=== PATIENT | female | born 1990 | race African-American/Black ===

== ENCOUNTER 2017-12-21 06:32 | Emergency (ER) | payer OTHER ==
[~2017-12-21] VITALS: Ht 162.6 cm; Wt 49.0 kg
[~2017-12-21 06:32] MED LIST: PROMS25 WY RECTAL; PROZAC10 MG PO; REGLAN 10 MG TA10 MG PO; ZOFRAN ODT4 MG PO
[2017-12-21 07:19] LABS: ABSOLUTE NEUTROPHILS 8.2 thou/uL (1.4-8.2); BASOPHILS 0.1 % (0.0-2.0); EOSINOPHILS 0.1 % (0.0-3.0); HEMATOCRIT 33.3 % (37.0-47.0); LYMPHOCYTES 9.2 % (24.0-44.0); MCH 26.5 pg (26.0-34.0); MCV 80.2 fL (80.0-100.0); MONOCYTES 3.6 % (1.0-8.0); PLATELET COUNT 215 thou/uL (150-400); RBC 4.15 mil/uL (4.20-5.00); RDW 16.4 % (10.5-14.5); WBC 9.4 thou/uL (4.0-11.0)
[2017-12-21 08:07] LABS: URINE BILIRUBIN NEGATIVE (Negative); URINE BLOOD NEGATIVE (Negative); URINE CLARITY CLEAR; URINE COLOR YELLOW; URINE GLUCOSE-RANDOM* NEGATIVE (Negative); URINE KETONES 3+ (Negative); URINE LEUKOCYTES-REFLEX NEGATIVE (Negative); URINE NITRITE-REFLEX NEGATIVE (Negative); URINE PROTEIN (DIPSTICK) NEGATIVE (Negative); URINE SPECIFIC GRAVITY 1.025 (1.005-1.035); URINE UROBILINOGEN 0.2 E.U./dl (0.2-1.0)
[2017-12-21 08:11] LABS: URINE REDUCING SUBSTANCE NEGATIVE
[2017-12-21 08:30] LABS: ALBUMIN 3.3 g/dL (3.4-5.0); CALCIUM 8.8 mg/dL (8.5-10.1); CREATININE 0.6 mg/dL (0.6-1.0); POTASSIUM 3.9 mmol/L (3.5-5.1); TOTAL BILIRUBIN 0.6 mg/dL (<0.1-1.0); TOTAL PROTEIN 6.7 g/dL (6.4-8.2)
[2017-12-21] MEDS ORDERED: PROMS25 WY RECTAL (08:45)
[2017-12-21] MEDS ORDERED: ZOFRAN ODT8 MG PO (08:45)
[2018-02-14] MEDS ORDERED: PHENERGAN 25 MG25 M1 PO (14:42)
[2018-02-14] MEDS ORDERED: PROMS25 WY RECTAL (14:42)
== END 2017-12-21 08:50 | disposition home or self-care (01) ==
LOC: ER 06:32
PROVIDERS: Emergency Medicine
DX: O21.0 Mild hyperemesis gravidarum (principal); Z3A.18 18 weeks gestation of pregnancy

== ENCOUNTER 2017-12-27 04:25 | Emergency (ER) | payer OTHER ==
[~2017-12-27] VITALS: Ht 162.6 cm; Wt 49.9 kg
[~2017-12-27 04:25] MED LIST changes: +ZOFRAN ODT8 MG PO
[2017-12-27] MEDS ORDERED: NOHOMEMEDICATIONS (04:53)
[2017-12-27] MEDS ORDERED: ZOFRAN ODT8 MG PO (04:58)
[2017-12-27] MEDS ORDERED: PEPCID20 MG PO (04:58)
[2017-12-27] MEDS ORDERED: PROMS25 WY RECTAL (04:58)
[2018-02-14] MEDS ORDERED: PROMS25 WY RECTAL (14:42)
[2018-02-14] MEDS ORDERED: PHENERGAN 25 MG25 M1 PO (14:42)
== END 2017-12-27 07:20 | disposition home or self-care (01) ==
LOC: ER 04:25
DX: I10 Essential (primary) hypertension (principal)

== ENCOUNTER 2018-01-07 05:32 | Emergency (ER) | payer OTHER ==
[~2018-01-07] VITALS: Ht 162.6 cm; Wt 49.0 kg
[~2018-01-07 05:32] MED LIST changes: +NOHOMEMEDICATIONS; +PEPCID20 MG PO
[2018-01-07 06:08] LABS: ABSOLUTE NEUTROPHILS 8.4 thou/uL (1.4-8.2); BASOPHILS 0.3 % (0.0-2.0); EOSINOPHILS 0.6 % (0.0-3.0); HEMATOCRIT 31.2 % (37.0-47.0); HEMOGLOBIN 10.3 gm/dL (12.0-15.0); LYMPHOCYTES 12.8 % (24.0-44.0); MCH 26.5 pg (26.0-34.0); MCHC 32.9 g/dL (28.0-37.0); MCV 80.5 fL (80.0-100.0); PLATELET COUNT 218 thou/uL (150-400); POLYS 80.3 % (36.0-66.0); RBC 3.88 mil/uL (4.20-5.00); RDW 16.2 % (10.5-14.5); WBC 10.4 thou/uL (4.0-11.0)
[2018-01-07 06:26] LABS: CALCIUM 8.5 mg/dL (8.5-10.1); CREATININE 0.6 mg/dL (0.6-1.0); POTASSIUM 3.1 mmol/L (3.5-5.1)
[2018-01-07 06:32] LABS: ALBUMIN 2.8 g/dL (3.4-5.0); TOTAL BILIRUBIN 0.3 mg/dL (<0.1-1.0); TOTAL PROTEIN 6.4 g/dL (6.4-8.2)
[2018-01-07 07:24] LABS: URINE BILIRUBIN NEGATIVE (Negative); URINE BLOOD NEGATIVE (Negative); URINE CLARITY SL CLOUDY; URINE COLOR YELLOW; URINE GLUCOSE-RANDOM* NEGATIVE (Negative); URINE KETONES NEGATIVE (Negative); URINE NITRITE-REFLEX NEGATIVE (Negative); URINE PROTEIN (DIPSTICK) NEGATIVE (Negative); URINE SPECIFIC GRAVITY 1.025 (1.005-1.035); URINE UROBILINOGEN 0.2 E.U./dl (0.2-1.0)
[2018-01-07 07:26] LABS: URINE LEUKOCYTES-REFLEX TRACE (Negative)
[2018-02-14] MEDS ORDERED: PROMS25 WY RECTAL (14:42)
[2018-02-14] MEDS ORDERED: PHENERGAN 25 MG25 M1 PO (14:42)
== END 2018-01-07 09:34 ==
LOC: ER 05:32
PROVIDERS: Emergency Medicine
DX: O21.0 Mild hyperemesis gravidarum (principal); Z3A.24 24 weeks gestation of pregnancy

== ENCOUNTER 2018-02-05 03:59 | Emergency (ER) | payer OTHER ==
[~2018-02-05] VITALS: Ht 162.6 cm; Wt 49.9 kg
[2018-02-05] MEDS ORDERED: PEPCID20 MG PO (04:33)
[2018-02-05 04:35] LABS: URINE BILIRUBIN NEGATIVE (Negative); URINE BLOOD 3+ (Negative); URINE CLARITY SL CLOUDY; URINE COLOR YELLOW; URINE GLUCOSE-RANDOM* NEGATIVE (Negative); URINE KETONES 3+ (Negative); URINE PROTEIN (DIPSTICK) 1+ (Negative); URINE SPECIFIC GRAVITY >= 1.030 (1.005-1.035); URINE UROBILINOGEN 0.2 E.U./dl (0.2-1.0)
[2018-02-05 04:41] LABS: CALCIUM 8.9 mg/dL (8.5-10.1); CREATININE 0.7 mg/dL (0.6-1.0); POTASSIUM 3.7 mmol/L (3.5-5.1)
[2018-02-05 04:57] LABS: URINE LEUKOCYTES-REFLEX TRACE (Negative); URINE NITRITE-REFLEX POSITIVE (Negative)
[2018-02-05 05:04] LABS: URINE REDUCING SUBSTANCE NEGATIVE
[2018-02-05 05:06] LABS: BACTERIA-REFLEX >30 Many /HPF (None Seen); CASTS None Seen /LPF (None Seen); MUCUS 4-6 Moderate strn/LPF (None Seen); SQUAMOUS 4-10 Moderate /LPF (0-3); URINE WBC-REFLEX 6-15 Few /HPF (0-5)
[2018-02-05 05:07] LABS: CRYSTALS None Seen /LPF (None Seen)
[2018-02-05] MEDS ORDERED: WAL-SOM25 M1 PO (05:37)
[2018-02-05] MEDS ORDERED: KEFLEX500 M1 PO (05:37)
[2018-02-05] MEDS ORDERED: VITAMIN B-625 MG PO (05:37)
[2018-02-05 06:15] VITALS: BP 96/56
== END 2018-02-05 06:32 | disposition home or self-care (01) ==
LOC: ER 03:59
PROVIDERS: Emergency Medicine
DX: O23.42 Unspecified infection of urinary tract in pregnancy, second trimester (principal); Z3A.27 27 weeks gestation of pregnancy

== ENCOUNTER 2018-03-10 08:20 | Emergency (ER) | payer OTHER ==
[~2018-03-10] VITALS: Ht 162.6 cm; Wt 56.7 kg
[~2018-03-10 08:20] MED LIST changes: +KEFLEX500 M1 PO; +PHENERGAN 25 MG25 M1 PO; +VITAMIN B-625 MG PO; +WAL-SOM25 M1 PO
[2018-03-10] MEDS ORDERED: BENADRYL25 MG PO (08:30)
[2018-03-10] MEDS ORDERED: IRON325 PO (08:30)
[2018-03-10] MEDS ORDERED: MACRODANTIN25 MG PO (08:34)
[2018-03-10 09:32] LABS: URINE BILIRUBIN NEGATIVE (Negative); URINE BLOOD 3+ (Negative); URINE CLARITY SL CLOUDY; URINE COLOR YELLOW; URINE GLUCOSE-RANDOM* NEGATIVE (Negative); URINE KETONES NEGATIVE (Negative); URINE NITRITE-REFLEX NEGATIVE (Negative); URINE PROTEIN (DIPSTICK) 1+ (Negative); URINE SPECIFIC GRAVITY 1.025 (1.005-1.035); URINE UROBILINOGEN 0.2 E.U./dl (0.2-1.0)
[2018-03-10 09:34] LABS: SQUAMOUS 0-3 Few /LPF (0-3); URINE LEUKOCYTES-REFLEX TRACE (Negative)
[2018-03-10 09:35] LABS: CASTS None Seen /LPF (None Seen); CRYSTALS None Seen /LPF (None Seen)
[2018-03-10 09:37] LABS: BACTERIA-REFLEX 1-9 Few /HPF (None Seen); URINE WBC-REFLEX None Seen /HPF (0-5)
[2018-03-10 10:35] LABS: HEMATOCRIT 30.4 % (37.0-47.0); HEMOGLOBIN 10.1 gm/dL (12.0-15.0); MCH 26.3 pg (26.0-34.0); MCHC 33.3 g/dL (28.0-37.0); RBC 3.85 mil/uL (4.20-5.00); WBC 11.8 thou/uL (4.0-11.0)
[2018-03-10 10:44] LABS: CALCIUM 8.7 mg/dL (8.5-10.1); CREATININE 0.7 mg/dL (0.6-1.0); POTASSIUM 3.8 mmol/L (3.5-5.1)
[2018-03-10 10:50] LABS: ALBUMIN 3.1 g/dL (3.4-5.0); TOTAL BILIRUBIN 0.4 mg/dL (<0.1-1.0); TOTAL PROTEIN 6.8 g/dL (6.4-8.2)
[2018-03-10 12:29] VITALS: BP 114/76
[2018-03-11 14:12] LABS: NEISSERIA GONORRHEA-PCR Negative (Negative)
== END 2018-03-10 12:25 | disposition left against medical advice (07) ==
LOC: ER 08:20
PROVIDERS: Emergency Medicine
DX: O23.03 Infections of kidney in pregnancy, third trimester (principal); Z3A.31 31 weeks gestation of pregnancy

== ENCOUNTER 2018-03-12 04:40 | Emergency (ER) | payer OTHER ==
[~2018-03-12] VITALS: Ht 162.6 cm; Wt 51.7 kg
[~2018-03-12 04:40] MED LIST changes: +BENADRYL25 MG PO; +IRON325 PO; +MACRODANTIN25 MG PO
[2018-03-12 04:53] LABS: URINE BILIRUBIN NEGATIVE (Negative); URINE BLOOD NEGATIVE (Negative); URINE CLARITY CLEAR; URINE COLOR YELLOW; URINE GLUCOSE-RANDOM* NEGATIVE (Negative); URINE KETONES NEGATIVE (Negative); URINE LEUKOCYTES TRACE (Negative); URINE NITRITE NEGATIVE (Negative); URINE SPECIFIC GRAVITY 1.015 (1.005-1.035); URINE UROBILINOGEN 0.2 E.U./dl (0.2-1.0)
[2018-03-12 05:10] LABS: SSA (PROTEIN CONFIRMATORY) NEGATIVE (Negative); URINE PROTEIN (DIPSTICK) NEGATIVE (Negative)
[2018-03-12 05:12] VITALS: BP 107/61
[2018-03-12 05:12] LABS: ABSOLUTE NEUTROPHILS 5.8 thou/uL (1.4-8.2); BASOPHILS 0.3 % (0.0-2.0); EOSINOPHILS 0.1 % (0.0-3.0); HEMATOCRIT 30.8 % (37.0-47.0); HEMOGLOBIN 10.2 gm/dL (12.0-15.0); LYMPHOCYTES 12.4 % (24.0-44.0); MCH 26.2 pg (26.0-34.0); MCHC 33.2 g/dL (28.0-37.0); MCV 78.8 fL (80.0-100.0); MONOCYTES 5.9 % (1.0-8.0); PLATELET COUNT 211 thou/uL (150-400); POLYS 81.3 % (36.0-66.0); RBC 3.91 mil/uL (4.20-5.00); RDW 18.5 % (10.5-14.5); WBC 7.2 thou/uL (4.0-11.0)
[2018-03-12] MEDS ORDERED: CYCLOBENZAPRINE5 MG PO (05:17)
[2018-03-12 05:19] LABS: CALCIUM 8.7 mg/dL (8.5-10.1); CREATININE 0.6 mg/dL (0.6-1.0); POTASSIUM 3.4 mmol/L (3.5-5.1)
[2018-03-12 05:25] LABS: ALBUMIN 2.9 g/dL (3.4-5.0); DIRECT BILIRUBIN 0.1 mg/dL (<0.1-0.3); TOTAL BILIRUBIN 0.5 mg/dL (<0.1-1.0); TOTAL PROTEIN 6.6 g/dL (6.4-8.2)
[2018-03-12] MEDS ORDERED: PROMS25 WY RECTAL (05:26)
== END 2018-03-12 05:40 | disposition home or self-care (01) ==
LOC: ER 04:40
PROVIDERS: Emergency Medicine
DX: O21.0 Mild hyperemesis gravidarum (principal); Z3A.31 31 weeks gestation of pregnancy

== ENCOUNTER 2018-03-20 08:52 | Emergency (ER) | payer OTHER ==
[~2018-03-20] VITALS: Ht 162.6 cm; Wt 51.7 kg
[~2018-03-20 08:52] MED LIST changes: +CYCLOBENZAPRINE5 MG PO
[2018-03-20 09:12] LABS: ICTOTEST (BILI CONFIRMATORY) Negative (Negative); URINE BILIRUBIN NEGATIVE (Negative); URINE BLOOD TRACE (Negative); URINE CLARITY SL CLOUDY; URINE COLOR YELLOW; URINE GLUCOSE-RANDOM* NEGATIVE (Negative); URINE KETONES TRACE (Negative); URINE LEUKOCYTES-REFLEX 2+ (Negative); URINE NITRITE-REFLEX NEGATIVE (Negative); URINE PROTEIN (DIPSTICK) 1+ (Negative); URINE SPECIFIC GRAVITY 1.025 (1.005-1.035); URINE UROBILINOGEN 0.2 E.U./dl (0.2-1.0)
[2018-03-20 09:18] LABS: CASTS None Seen /LPF (None Seen); CRYSTALS None Seen /LPF (None Seen); SQUAMOUS 4-10 Moderate /LPF (0-3)
[2018-03-20 09:19] LABS: URINE RBC 0-2 Rare /HPF (0-2); URINE WBC-REFLEX 6-15 Few /HPF (0-5)
[2018-03-20 09:41] LABS: ABSOLUTE NEUTROPHILS 7.1 thou/uL (1.4-8.2); BASOPHILS 0.3 % (0.0-2.0); EOSINOPHILS 0.2 % (0.0-3.0); HEMATOCRIT 33.1 % (37.0-47.0); HEMOGLOBIN 10.9 gm/dL (12.0-15.0); LYMPHOCYTES 12.8 % (24.0-44.0); MCH 25.7 pg (26.0-34.0); MCHC 32.8 g/dL (28.0-37.0); MCV 78.4 fL (80.0-100.0); MONOCYTES 5.5 % (1.0-8.0); PLATELET COUNT 258 thou/uL (150-400); POLYS 81.2 % (36.0-66.0); RBC 4.22 mil/uL (4.20-5.00); RDW 18.8 % (10.5-14.5); WBC 8.7 thou/uL (4.0-11.0)
[2018-03-20 09:49] LABS: CALCIUM 9.1 mg/dL (8.5-10.1); CREATININE 0.6 mg/dL (0.6-1.0)
[2018-03-20] MEDS ORDERED: PHENERGAN 25 MG25 M1 PO ×2 (09:49→11:16)
[2018-03-20 09:55] LABS: ALBUMIN 3.4 g/dL (3.4-5.0); TOTAL BILIRUBIN 0.8 mg/dL (<0.1-1.0); TOTAL PROTEIN 7.7 g/dL (6.4-8.2)
[2018-03-20] MEDS ORDERED: BACTRIM DS TAB1 EACH PO (11:16)
[2018-03-20] MEDS ORDERED: FLEXERIL PO (11:16)
[2018-03-20 11:54] VITALS: BP 109/69
[2018-03-21] MEDS ORDERED: ZOFRAN ODT4 MG PO (06:08)
== END 2018-03-20 11:57 | disposition home or self-care (01) ==
LOC: ER 08:52
PROVIDERS: Nurse Practitioner Family
DX: O21.0 Mild hyperemesis gravidarum (principal); O23.43 Unspecified infection of urinary tract in pregnancy, third trimester; M62.830 Muscle spasm of back; F32.9 Major depressive disorder, single episode, unspecified; Z88.5 Allergy status to narcotic agent; Z3A.33 33 weeks gestation of pregnancy

== ENCOUNTER 2018-03-21 03:28 | Emergency (ER) | payer OTHER ==
[~2018-03-21] VITALS: Ht 162.6 cm; Wt 51.7 kg
[~2018-03-21 03:28] MED LIST changes: +BACTRIM DS TAB1 EACH PO; +FLEXERIL PO
[2018-03-21 04:01] LABS: ABSOLUTE NEUTROPHILS 4.9 thou/uL (1.4-8.2); BASOPHILS 0.6 % (0.0-2.0); EOSINOPHILS 0.1 % (0.0-3.0); HEMATOCRIT 29.5 % (37.0-47.0); HEMOGLOBIN 9.6 gm/dL (12.0-15.0); LYMPHOCYTES 25.1 % (24.0-44.0); MCH 25.6 pg (26.0-34.0); MCHC 32.6 g/dL (28.0-37.0); MCV 78.5 fL (80.0-100.0); MONOCYTES 10.3 % (1.0-8.0); PLATELET COUNT 229 thou/uL (150-400); POLYS 63.9 % (36.0-66.0); RBC 3.76 mil/uL (4.20-5.00); RDW 18.9 % (10.5-14.5); WBC 7.7 thou/uL (4.0-11.0)
[2018-03-21 04:09] LABS: URINE BILIRUBIN NEGATIVE (Negative); URINE BLOOD NEGATIVE (Negative); URINE CLARITY CLEAR; URINE COLOR YELLOW; URINE GLUCOSE-RANDOM* NEGATIVE (Negative); URINE KETONES NEGATIVE (Negative); URINE LEUKOCYTES 1+ (Negative); URINE NITRITE POSITIVE (Negative); URINE PROTEIN (DIPSTICK) TRACE (Negative); URINE SPECIFIC GRAVITY 1.025 (1.005-1.035); URINE UROBILINOGEN 0.2 E.U./dl (0.2-1.0)
[2018-03-21 04:09] LABS: CALCIUM 8.6 mg/dL (8.5-10.1); CREATININE 0.6 mg/dL (0.6-1.0); POTASSIUM 3.5 mmol/L (3.5-5.1)
[2018-03-21 04:15] LABS: ALBUMIN 3.1 g/dL (3.4-5.0); DIRECT BILIRUBIN 0.1 mg/dL (<0.1-0.3); TOTAL BILIRUBIN 0.6 mg/dL (<0.1-1.0)
[2018-03-21 04:26] LABS: CASTS None Seen /LPF (None Seen); MUCUS 4-6 Moderate strn/LPF (None Seen); SQUAMOUS 4-10 Moderate /LPF (0-3)
[2018-03-21 04:27] LABS: BACTERIA >30 Many /HPF (None Seen); CRYSTALS None Seen /LPF (None Seen); URINE RBC 0-2 Rare /HPF (0-2); URINE WBC 6-15 Few /HPF (0-5)
[2018-03-21] MEDS ORDERED: ZOFRAN ODT4 MG PO (06:08)
[2018-03-21 06:13] VITALS: BP 123/78
[2018-03-22] MEDS ORDERED: KEFLEX500 M1 PO (03:14)
== END 2018-03-21 06:15 | disposition home or self-care (01) ==
LOC: ER 03:28
PROVIDERS: Emergency Medicine
DX: O21.0 Mild hyperemesis gravidarum (principal); O23.43 Unspecified infection of urinary tract in pregnancy, third trimester; O99.343 Other mental disorders complicating pregnancy, third trimester; Z3A.33 33 weeks gestation of pregnancy; Z88.5 Allergy status to narcotic agent

== ENCOUNTER 2018-03-22 02:24 | Emergency (ER) | payer OTHER ==
[~2018-03-22] VITALS: Ht 162.6 cm; Wt 52.2 kg
[2018-03-22 03:14] LABS: ABSOLUTE NEUTROPHILS 6.5 thou/uL (1.4-8.2); BASOPHILS 0.5 % (0.0-2.0); EOSINOPHILS 0.3 % (0.0-3.0); HEMATOCRIT 31.3 % (37.0-47.0); HEMOGLOBIN 10.3 gm/dL (12.0-15.0); LYMPHOCYTES 21.6 % (24.0-44.0); MCH 25.9 pg (26.0-34.0); MCHC 32.9 g/dL (28.0-37.0); MCV 78.6 fL (80.0-100.0); MONOCYTES 7.1 % (1.0-8.0); PLATELET COUNT 247 thou/uL (150-400); POLYS 70.5 % (36.0-66.0); RBC 3.99 mil/uL (4.20-5.00); WBC 9.3 thou/uL (4.0-11.0)
[2018-03-22] MEDS ORDERED: KEFLEX500 M1 PO (03:14)
[2018-03-22 03:44] LABS: CREATININE 0.6 mg/dL (0.6-1.0); POTASSIUM 3.8 mmol/L (3.5-5.1)
[2018-03-22 03:48] LABS: ALBUMIN 3.3 g/dL (3.4-5.0); DIRECT BILIRUBIN 0.1 mg/dL (<0.1-0.3); TOTAL BILIRUBIN 0.8 mg/dL (<0.1-1.0); TOTAL PROTEIN 7.6 g/dL (6.4-8.2)
[2018-03-22 04:58] VITALS: BP 109/77
== END 2018-03-22 04:59 | disposition home or self-care (01) ==
LOC: ER 02:24
PROVIDERS: Emergency Medicine
DX: O23.43 Unspecified infection of urinary tract in pregnancy, third trimester (principal); O99.343 Other mental disorders complicating pregnancy, third trimester; Z3A.33 33 weeks gestation of pregnancy; Z91.14 Patient's other noncompliance with medication regimen; Z88.5 Allergy status to narcotic agent